=== PATIENT | male | born 1960 | race African-American/Black ===

== ENCOUNTER 2021-06-01 12:09 | Outpatient (CLI) | payer BC ==
[2021-06-01 13:16] LABS: #Monocytes 0.5 10x3/uL (0.0-1.1); #Neutrophils 2.3 10x3/uL (1.5-8.4); %Basophils 0.4 % (0.0-2.0); %Eosinophils 0.9 % (0.0-6.0); %Lymphocytes 36.1 % (18.0-47.0); %Monocytes 10.8 % (0.0-10.0); %Neutrophils 51.6 % (40.0-75.0); Hemoglobin 14.5 g/dL (13.5-17.5); Mean Corpuscular Hemoglobin 29.4 pg (27.0-33.0); Mean Corpuscular Volume 89.1 fl (81.2-95.1); Mean Platelet Volume 9.3 fl (7.4-10.4); Platelet Count 271 10x3/uL (150-450); RBC Distribution Width 14.2 % (11.5-14.5); Red Blood Cell (RBC) Count 4.94 10x6/uL (4.32-5.72); White Blood Cell (WBC) Count 4.5 10x3/uL (3.5-10.5)
[2021-06-01 14:23] LABS: Anion Gap 13 mmol/L (10-20); BUN (Urea Nitrogen) 9 mg/dL (8.4-25.7); Calc. Creatinine Clearance 0 mL/min (70-130); Calcium 10.8 mg/dL (7.8-10.44); Carbon Dioxide 23 mmol/L (23-31); Chloride 106 mmol/L (98-107); Glucose 101 mg/dL (80-115); Potassium 4.3 mmol/L (3.5-5.1); Sodium 138 mmol/L (136-145)
== END 2021-06-01 12:10 | disposition home or self-care (01) ==
LOC: LABBT 12:09
PROVIDERS: ATTEND Orthopaedic Surgery
DX: Z01.818 Encounter for other preprocedural examination (principal); M24.811 Other specific joint derangements of right shoulder, not elsewhere classified
CPT/HCPCS: 71046; 80048; 85025; 93005; 93010

== ENCOUNTER 2021-06-04 05:46 | Day surgery (SDC) | payer BC ==
[2021-06-03 13:40] VITALS: BMI 19.2
[2021-06-04] MEDS ORDERED: Bupivacaine 0.25% HCL 30 ML VIAL ONE (06:37)
[2021-06-04] MEDS ORDERED: EPINEPHrine 1 MG/ML AMP ONE (06:37)
[2021-06-04] MEDS ORDERED: Lidocaine 1% (PF) 30 ML VIAL ONE (06:54)
[2021-06-04] MEDS ORDERED: Fentanyl 100 MCG/2 ML VIAL ONE ×2 (06:54→07:43)
[2021-06-04] MEDS ORDERED: Midazolam HCl 2 mg/2 ml Vial ONE (06:54)
[2021-06-04] MEDS ORDERED: Ondansetron PF 4 MG/2 ML Vial IVP PRN (07:00)
[2021-06-04] MEDS ORDERED: Zolpidem Tartrate 5 MG TAB PO PRN (07:00)
[2021-06-04] MEDS ORDERED: Ropivacaine 0.2% 550 ML 550 ML NERVE BLCK SCH (07:00)
[2021-06-04] MEDS ORDERED: HYDROcodone/Acetaminophen 10/325 mg Tablet PO PRN ×2 (07:00)
[2021-06-04] MEDS ORDERED: traMADol HCl 50 MG TAB PO PRN ×2 (07:00)
[2021-06-04] MEDS ORDERED: Promethazine HCl 25 MG/ML VIAL IM PRN (07:00)
[2021-06-04] MEDS ORDERED: Fentanyl 100 MCG/2 ML VIAL IV PRN (07:01)
[2021-06-04] MEDS ORDERED: Famotidine/PF 20 mg/2ml Vial ONE (07:40)
[2021-06-04] MEDS ORDERED: Dexamethasone 20 MG/5 ML VIAL ONE (07:49)
[2021-06-04] MEDS ORDERED: PHENYLEPHRINE-NS 100 MCG/ML 10 ML SYRINGE ONE (07:49)
[2021-06-04] MEDS ORDERED: Ropivacaine 0.5% HCl/PF (150 MG/30 ML VIAL) ONE (07:49)
[2021-06-04] MEDS ORDERED: ePHEDrine Sulfate 50 MG/10 ML VIAL ONE (07:49)
[2021-06-04] MEDS ORDERED: Ropivacaine 2% HCl/PF (20 MG/10 ML VIAL) ONE (07:49)
[2021-06-04] MEDS ORDERED: Ondansetron PF 4 MG/2 ML Vial ONE (07:49)
[2021-06-04] MEDS ORDERED: PROPOFOL 200 MG/20 ML VIAL ONE (07:49)
[2021-06-04] MEDS ORDERED: Rocuronium Bromide 10 MG/ML (10ML VIAL) ONE (07:49)
[2021-06-04] MEDS ORDERED: Ketorolac Tromethamine 30 MG/ML VIAL ONE (07:49)
[2021-06-04] MEDS ORDERED: Lidocaine 1% PF 5 ML VIAL ONE (07:49)
[2021-06-04] MEDS ORDERED: Glycopyrrolate 0.2 MG/ML 5 ML SYRINGE ONE (07:49)
== END 2021-06-04 12:50 | disposition home or self-care (01) ==
LOC: SDC 05:46
PROVIDERS: ATTEND Orthopaedic Surgery
PROC: 0LS30ZZ Reposition Right Upper Arm Tendon, Open Approach (ICD-10-PCS; principal; 2021-06-04)
PROC: 3E0T3BZ Introduction of Anesthetic Agent into Peripheral Nerves and Plexi, Percutaneous Approach (ICD-10-PCS; principal; 2021-06-04)
PROC: 0RNJ4ZZ Release Right Shoulder Joint, Percutaneous Endoscopic Approach (ICD-10-PCS; principal; 2021-06-04)
DX: S43.431A Superior glenoid labrum lesion of right shoulder, initial encounter (principal); M25.811 Other specified joint disorders, right shoulder; E78.5 Hyperlipidemia, unspecified; I10 Essential (primary) hypertension; K21.9 Gastro-esophageal reflux disease without esophagitis; F17.210 Nicotine dependence, cigarettes, uncomplicated
CPT/HCPCS: A4306; C1713; J0171; J0690; J1100; J1885; J2001; J2250; J2405; J2704; J2795; J3010; S0020; S0028

== ENCOUNTER 2021-08-10 12:16 | Outpatient (CLI) | payer BC | END 2021-08-10 12:17 | disposition home or self-care (01) | LOC: BICRAD 12:16 | PROVIDERS: ATTEND Pediatrics | DX: R06.00 Dyspnea, unspecified (principal) | CPT/HCPCS: 71046 ==